=== PATIENT | male | born 1965 | race Caucasian/White ===

== ENCOUNTER 2019-11-11 07:41 | Observation (INO) ==
[2019-11-11] MEDS ORDERED: MoRPHine SULFATE 4 MG/ML 1 ML CARP\\VIAL IV STA (07:52)
[2019-11-11] MEDS ORDERED: ONDANSETRON INJ 2 MG/ML 2 ML VIAL IV STA (07:52)
[2019-11-11 08:00] LABS: Basophils # (auto) 0.03 K/uL (0-0.2); Basophils % (auto) 0.4 %; Eosinophils # (auto) 0.25 K/uL (0-0.5); Eosinophils % (auto) 3.1 %; Hematocrit (blood only) 46.1 % (42-52); Hemoglobin 16.2 g/dL (14.0-18.0); Immature Granulocytes # (auto) 0.02 K/uL (0.00-0.02); Immature Granulocytes % (auto) 0.3 %; Lymphocytes # (auto) 1.53 K/uL (1.2-3.4); Lymphocytes % (auto) 19.2 %; Mean Corpuscular Hemoglobin 32.3 pg (25-34); Mean Corpuscular Hgb Conc 35.1 g/dL (32-36); Mean Platelet Volume 10.6 fL (7.4-10.4); Monocytes # (auto) 0.41 K/uL (0.11-0.59); Monocytes % (auto) 5.1 %; Neutrophils # (auto) 5.73 K/uL (1.4-6.5); Neutrophils % (auto) 71.9 %; Platelet Count 238 K/uL (130-400); RDW Coefficient of Variation 12.9 % (11.5-14.5); RDW Standard Deviation 42.9 fL (36.4-46.3); Red Blood Count 5.01 M/uL (4.7-6.1); White Blood Count 7.97 K/uL (4.8-10.8)
--- NOTE | 2019-11-11 08:00 | Emergency Department Note ---
History of Present Illness General Chief complaint: Chest Pain Time Seen by Provider: 11/11/19 07:42 History of Present Illness Maximum Pain Intensity: 3 This is a 54-year-old male with a past medical history significant for that of type 2 diabetes and hypercholesterolemia that presents to the emergency department via ambulance with complaints of "chest pain". Current pain is a 3/10 and he points to the substernal/left anterior chest as a location of pain that he feels as though he was punched in the chest. He denies any trauma or injury. No fevers or chills. No cough. He does smoke cigarettes. He notes that initially the pain developed yesterday around 11 AM while he was at work and this was somewhat exertional in nature. This then subsided after about half an hour but did linger as a soreness throughout the day. He went to bed with the pain and woke up today around 4:30 AM and the pain seemed to have worsened. It was associated with pain in the left arm, dizziness/lightheadedness, diaphoresis with persistence of the discomfort. He then went to work and then an ambulance was summoned and he was brought here for evaluation. Prior to the ambulance arriving he did take two 325 mg aspirin, and then in the ambulance he did have a sublingual nitroglycerin as well as a nitro spray. He notes that the discomfort was decreased to a 3/10 after the nitroglycerin. He denies any heart history personally or history of NH with mother father prior to age 66. Home Medications Home Medications Medication Instructions Recorded Confirmed Type aspirin 650 mg PO DIRECTED PRN 11/11/19 11/11/19 History dapagliflozin [Farxiga] 5 mg PO QAM 11/11/19 11/11/19 History ibuprofen 400 mg PO Q6H PRN 11/11/19 11/11/19 History metformin 1,000 mg PO BID 11/11/19 11/11/19 History pseudoephedrine HCl [Sudafed] 30 mg PO QAM 11/11/19 11/11/19 History Allergies Allergy/AdvReac Type Severity Reaction Status Date / Time No Known Allergies Allergy Unverified 11/11/19 08:19 Past Med/Surg History Medical History Type 2 diabetes mellitus Surgical History Hx of anterior cruciate ligament surgery Social History Preferred Language: Marshallese Communication Ability: Effective Piano Regulator Required: No Beliefs That Will Affect Care: None Current Living Situation: Spouse Other Information That Helps Us Care for You: No Feels Safe at Home: Yes Safety Concerns: Feels Safe At This Time Smoking Status: Current every day smoker Tobacco Type: cigarettes ; Cigarettes Per Day: 20 ; Do You Dip or Chew Tobacco: No ; Hx Alcohol Use: Yes Alcohol type: beer Hx Substance Use: No Review of Systems A total of 10 systems reviewed and were otherwise negative Physical Exam Vital Signs Vital Signs - 24 hr 11/11/19 07:46 11/11/19 07:53 11/11/19 08:25 Temperature 36.8 C Temperature Source Oral Pulse Rate 80 Pulse Rate [Finger] 71 Respiratory Rate 18 16 Respiratory Effort / Characteristics Non-Labored Respiratory Depth Normal Blood Pressure 137/108 H Blood Pressure [Left Arm] 144/101 H Blood Pressure Mean 117 Blood Pressure Mean [Left Arm] 115 Pulse Oximetry 96 96 96 Oxygen Delivery Method Room Air Room Air Room Air Sepsis Recent Fever Within 48 Hours No Sepsis New/Unexplained Change in Mental Status No Sepsis Action Taken by Nursing No Action Required 11/11/19 09:41 11/11/19 11:53 Temperature Temperature Source Pulse Rate Pulse Rate [Finger] 71 83 Respiratory Rate 16 20 Respiratory Effort / Characteristics Respiratory Depth Blood Pressure Blood Pressure [Left Arm] 136/87 132/74 Blood Pressure Mean Blood Pressure Mean [Left Arm] 103 93 Pulse Oximetry 96 96 Oxygen Delivery Method Room Air Sepsis Recent Fever Within 48 Hours Sepsis New/Unexplained Change in Mental Status Sepsis Action Taken by Nursing VITAL SIGNS - Vital signs and nursing notes were reviewed. Hypertensive, otherwise stable. GENERAL - 54-year-old male appearing his stated age who is in no acute distress. Communicates well with provider and answers questions appropriately. SKIN - Without rashes. HEAD - NC/AT. EYES - PERRL with EOMI bilaterally. Sclera anicteric. EARS - No deformities of external structures noted on gross examination bilaterally. NOSE - Midline and without cyanosis. No epistaxis or purulent drainage noted. MOUTH/OROPHARYNX - Without perioral cyanosis. NECK - Neck with FROM. Supple to palpation. No lymphadenopathy noted. No nuchal rigidity. LUNGS - Chest wall symmetric without accessory muscle use, intercostals retracti ons, or central cyanosis. Normal vesicular breath sounds CTA B/L. No wheezes, rales, or rhonchi appreciated. CARDIAC - RRR with S1/S2. No murmur, rubs, or gallops appreciated. No reproducible chest tenderness. No evidence of trauma. ABDOMEN - Abdominal contour normal without pulsations or visible masses. BS normoactive all four quadrants. No tenderness, palpable masses, hepatosplenomegaly, or ascites noted. EXTREMITIES - No clubbing or peripheral cyanosis. NEUROLOGIC - Cranial nerves II through XII grossly intact. Sensory intact to light touch throughout. PSYCH - A&O, and cooperates fully with examiner. Pt is very pleasant and interacts well with examiner. Course Administered Medications Discontinued Medications Morphine Sulfate (Morphine Sulfate) 4 mg IV NOW STA Stop: 11/11/19 07:53 Last Admin: 11/11/19 07:57 Dose: 4 mg Documented by: [id number] Ondansetron HCl (Zofran) 4 mg IV NOW STA Stop: 11/11/19 07:53 Last Admin: 11/11/19 07:57 Dose: 4 mg Documented by: [id number] Medical Decision Making Laboratory Data Result diagrams: 11/11/19 07:51 11/11/19 07:51 Lab Results 11/11/19 11/11/19 11/11/19 Range/Units 07:51 07:51 07:51 WBC 7.97 (4.8-10.8) K/uL RBC 5.01 (4.7-6.1) M/uL Hgb 16.2 (14.0-18.0) g/dL Hct 46.1 (42-52) % MCV 92.0 (80-100) fL MCH 32.3 (25-34) pg MCHC 35.1 (32-36) g/dL RDW Std Deviation 42.9 (36.4-46.3) fL RDW Coeff of Charly 12.9 (11.5-14.5) % Plt Count 238 (130-400) K/uL MPV 10.6 H (7.4-10.4) fL Immature Gran % (Auto) 0.3 % Neut % (Auto) 71.9 % Lymph % (Auto) 19.2 % Greenwood % (Auto) 5.1 % Eos % (Auto) 3.1 % Baso % (Auto) 0.4 % Immature Gran # (Auto) 0.02 (0.00-0.02) K/uL Neut # (Auto) 5.73 (1.4-6.5) K/uL Lymph # (Auto) 1.53 (1.2-3.4) K/uL Greenwood # (Auto) 0.41 (0.11-0.59) K/uL Eos # (Auto) 0.25 (0-0.5) K/uL Baso # (Auto) 0.03 (0-0.2) K/uL PT 10.8 (9.0-12.0) Seconds INR 1.0 (0.9-1.1) APTT 27.3 (21.0-31.0) Seconds PTT Ratio 1.0 Sodium 137 (136-145) mmol/L Potassium 4.5 (3.5-5.1) mmol/L Chloride 109 H (98-107) mmol/L Carbon Dioxide 23 (21-32) mmol/L Anion Gap 5.0 (3-11) BUN 12 (7-18) mg/dl Creatinine 1.04 (0.6-1.4) mg/dl Est Cr Clr Drug Dosing 95.2 ml/min Est GFR ( Amer) 94.6 Est GFR (Non-Af Amer) 81.6 BUN/Creatinine Ratio 11.1 (10-20) Glucose 222 H (70-99) mg/dl Calcium 9.0 (8.5-10.1) mg/dl Magnesium 2.1 (1.8-2.4) mg/dl Total Bilirubin 0.5 (0.2-1) mg/dl AST 21 (15-37) U/L ALT 36 (12-78) U/L Alkaline Phosphatase 91 (45-117) U/L Troponin I < 0.015 (0-0.045) ng/ml Total Protein 7.9 (6.4-8.2) gm/dl Albumin 3.8 (3.4-5.0) gm/dl Globulin 4.1 H (2.5-4.0) gm/dl Albumin/Globulin Ratio 0.9 (0.9-2) Lipase 94 (73-393) U/L TSH 1.030 (0.300-4.500) uIu/ml Specimen Hemolysis COVID-19 PCR (Negative) SARS-CoV-2 RNA (RT-PCR) 11/11/19 11/11/19 Range/Units 10:15 10:15 WBC (4.8-10.8) K/uL RBC (4.7-6.1) M/uL Hgb (14.0-18.0) g/dL Hct (42-52) % MCV (80-100) fL MCH (25-34) pg MCHC (32-36) g/dL RDW Std Deviation (36.4-46.3) fL RDW Coeff of Charly (11.5-14.5) % Plt Count (130-400) K/uL MPV (7.4-10.4) fL Immature Gran % (Auto) % Neut % (Auto) % Lymph % (Auto) % Greenwood % (Auto) % Eos % (Auto) % Baso % (Auto) % Immature Gran # (Auto) (0.00-0.02) K/uL Neut # (Auto) (1.4-6.5) K/uL Lymph # (Auto) (1.2-3.4) K/uL Greenwood # (Auto) (0.11-0.59) K/uL Eos # (Auto) (0-0.5) K/uL Baso # (Auto) (0-0.2) K/uL PT (9.0-12.0) Seconds INR (0.9-1.1) APTT (21.0-31.0) Seconds PTT Ratio Sodium (136-145) mmol/L Potassium (3.5-5.1) mmol/L Chloride (98-107) mmol/L Carbon Dioxide (21-32) mmol/L Anion Gap (3-11) BUN (7-18) mg/dl Creatinine (0.6-1.4) mg/dl Est Cr Clr Drug Dosing ml/min Est GFR ( Amer) Est GFR (Non-Af Amer) BUN/Creatinine Ratio (10-20) Glucose (70-99) mg/dl Calcium (8.5-10.1) mg/dl Magnesium (1.8-2.4) mg/dl Total Bilirubin (0.2-1) mg/dl AST (15-37) U/L ALT (12-78) U/L Alkaline Phosphatase (45-117) U/L Troponin I (0-0.045) ng/ml Total Protein (6.4-8.2) gm/dl Albumin (3.4-5.0) gm/dl Globulin (2.5-4.0) gm/dl Albumin/Globulin Ratio (0.9-2) Lipase (73-393) U/L TSH (0.300-4.500) uIu/ml Specimen Hemolysis COVID-19 PCR NEGATIVE (Negative) SARS-CoV-2 RNA (RT-PCR) Cancelled Imaging Data Radiologist's Impression: XR chest 1V portable CLINICAL HISTORY: Chest pain. COMPARISON STUDY: No previous studies for comparison. FINDINGS: Lung volumes are normal. Lungs are clear. There is no pneumothorax or pleural effusion. Cardiac size is normal. Mediastinal contours are normal. There is no evidence for pulmonary edema. IMPRESSION: No acute cardiopulmonary findings. ACT 112: Negative or not required by law. Electronically signed by: Anibal Granados M.D. 11/11/2019 8:18 AM ECG Data Rate (beats per minute): 70 Rhythm: + sinus rhythm Additional Comments: Qtc 429 MDM Narrative Patient was seen and evaluated as above in room C9. Review was performed of nursing notes and vital signs. After obtaining a thorough history and physical examination the above work up was performed. The patient presents to us today with complaints of chest pain. He presents via ambulance. 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 It was atraumatic. He believes he was exerting himself at the time of the onset. The pain then subsided after about half an hour and then lingered somewhat throughout the day into this morning when he awoke. He states that he then became diaphoretic, had left arm discomfort and felt lightheaded therefore ambulance was summoned and brought here for evaluation. He does not have any personal history of NH or heart ailments that he is aware of. He is hypertensive on arrival and does have a history of type 2 diabetes and he believes also hypercholesterolemia. He does smoke cigarettes. He did take 2 325 mg aspirin prior to arrival and did have 2 rounds of nitroglycerin in the ambulance which dropped his pain quite significantly to a 3/10. Given that he was still having pain on arrival I did elect to provide him morphine here. I did review his twelve-lead EKG and there are no signs of STEMI on this. Heart score 4. Chest x-ray negative. Labs reveal no leukocytosis or anemia. No emergent metabolic disturbance. Glucose 222. Troponin negative. The patient does note he was around 7 people who tested positive recently for coronavirus. Decision to obtain cover testing was made. COVID testing negative. While in the department, I personally reevaluated the patient several times and each time the patient was found to be resting comfortably. Patient was educated upon findings and I did speak with his after obtaining consent. He will be admitted for further evaluation and management given his risk factors and presentation. Patient was in agree ment. Case was discussed with the attending physician. EKG was reviewed by myself and found to be [Normal Sinus Rhythm] at a rate of 70 beats per minute and per my interpretation reveals QTc 429, no evidence of [facility] [place], no ectopy and no previous for comparison. An order was placed for continuous cardiac monitoring. The monitor shows a rate of 80bpm with Normal sinus rhythm. I attest that I have personally reviewed the patient medication list. GCS: 15 In the evaluation and treatment of this patient, the following differential diagnoses were considered: NH, ASC, Dysrhythmia, Angina, Mediastinitis, GERD, Esophagitis, PE, Pneumonia, Bronchitis, Costochondritis, Rib Fracture, Zoster. Impression & Plan Chest pain Discharge Plan Visit Data Chief Complaint: Chest Pain ED Provider: Tyler Frederick ED Midlevel Provider: Matthew Frey Discharge Problem: Chest pain Discharge Instructions Interventions: ED Discharge Assessment Last Done: 11/11/19 12:49 Forms Stand Alone Forms: My [facility] [employer] Prescriptions Prescriptions: No Action aspirin 325 mg Tablet 650 mg PO DIRECTED PRN (Reason: Chest Pain) RF: 0 metformin 1,000 mg Tablet 1,000 mg PO BID RF: 0 ibuprofen 200 mg Tablet 400 mg PO Q6H PRN (Reason: Pain) RF: 0 pseudoephedrine HCl [Sudafed] 30 mg Tablet 30 mg PO QAM RF: 0 Farxiga 5 mg tablet 5 mg PO QAM RF: 0 Referrals Referrals: PCP,NO [Primary Care Provider] -
[2019-11-11 08:13] LABS: Partial Thromboplastin Time 27.3 Seconds (21.0-31.0); Prothrombin Time 10.8 Seconds (9.0-12.0)
--- NOTE | 2019-11-11 08:20 | XRay Report ---
XR chest 1V portable CLINICAL HISTORY: Chest pain. COMPARISON STUDY: No previous studies for comparison. FINDINGS: Lung volumes are normal. Lungs are clear. There is no pneumothorax or pleural effusion. Car diac size is normal. Mediastinal contours are normal. There is no evidence for pulmonary edema. IMPRESSION: No acute cardiopulmonary findings. ACT 112: Negative or not required by law. Electronically signed by: Anibal Granados M.D. 11/11/2019 8:18 AM
[2019-11-11 08:43] LABS: Alanine Aminotransferase 36 U/L (12-78); Albumin Globulin Ratio 0.9 (0.9-2); Albumin Level 3.8 gm/dl (3.4-5.0); Alkaline Phosphatase 91 U/L (45-117); Aspartate Aminotransferase 21 U/L (15-37); BUN Creatinine Ratio 11.1 (10-20); Bilirubin,Total 0.5 mg/dl (0.2-1); Blood Urea Nitrogen 12 mg/dl (7-18); Carbon Dioxide 23 mmol/L (21-32); Chloride 109 mmol/L (98-107); Creatinine Clr Calc Pharmacy 95.2 ml/min; Est GFR (African American) 94.6; Est GFR (Non-African American) 81.6; Globulin 4.1 gm/dl (2.5-4.0); Glucose 222 mg/dl (70-99); Lipase 94 U/L (73-393); Magnesium 2.1 mg/dl (1.8-2.4); Potassium 4.5 mmol/L (3.5-5.1); Sodium 137 mmol/L (136-145); Total Protein 7.9 gm/dl (6.4-8.2); Troponin I < 0.015 ng/ml (0-0.045)
[2019-11-11] MEDS ORDERED: NITROGLYCERIN SL 0.4 MG/TAB TAB SL PRN (13:10)
[2019-11-11] MEDS ORDERED: ACETAMINOPHEN 325 MG TAB PO PRN (13:10)
[2019-11-11] MEDS ORDERED: ONDANSETRON INJ 2 MG/ML 2 ML VIAL IV PRN (13:10)
[2019-11-11] MEDS ORDERED: MoRPHine SULFATE 2 MG/ML CARP IV PRN (13:10)
[2019-11-11] MEDS ORDERED: POLYETHYLENE (MIRALAX) 17 GM PACK PO PRN (13:10)
[2019-11-11] MEDS ORDERED: INSULIN ASPART 100 UNITS/ML 3 ML PEN SC SCH (13:10)
[2019-11-11] MEDS ORDERED: DEXTROSE 50% 50 ML SYRINGE IV PRN (13:30)
[2019-11-11] MEDS ORDERED: CARBOHYDRATES FOR HYPOGLYCEMIA PO PRN (13:30)
[2019-11-11] MEDS ORDERED: GLUCOSE 10 TABS/TUBE PO PRN (13:30)
[2019-11-11] MEDS ORDERED: GLUCAGON FOR INJ 1 MG VIAL IM PRN (13:30)
[2019-11-11] MEDS ORDERED: GLUCOSE 40% GEL 15 GM TUBE PO PRN (13:30)
[2019-11-11 14:13] LABS: Estimated Average Glucose 214 mg/dl; Hemoglobin A1C 9.1 % (4.5-5.6)
[2019-11-11 14:16] LABS: Chol HDL Ratio 6; Cholesterol 230 mg/dl (0-200); HDL Cholesterol 42 mg/dl; LDL Cholesterol Calculated 155 mg/dl; Triglycerides 167 mg/dl (0-150); Troponin I < 0.015 ng/ml (0-0.045); VLDL Cholesterol 33 mg/dl
--- NOTE | 2019-11-11 14:27 | History & Physical Report ---
Date of Service November 11, 2019 Assessment & Plan (1) Chest pain: Chest pain: Concern for ACS vs. Unstable angina vs. Costochondritis Risk factors: smoker, DM2, HLD Troponin neg x [address] or T wave changes Qtc 429 CXR negative TSH 1 Electrolytes wnl Stress test and echo ordered Given 10-year risk of heart disease or stroke risk of 25% would benefit from high intensity statin, atorvastatin 40mg daily and aspirin 81mg daily Trend troponin, monitor on telemetry HLD Pt reports being on medications in the past, not sure why stopped, does not remember having myalgias Lipid profile: TC 230, trig 167, LDL 155, HDL 42 Will discuss starting pt on atorvastatin 40mg daily DM2 - poorly controlled HgbA1c 9.1 Continue home medications: dapagliflozin and metformin Recommend close follow up with PCP for improved management HTN Hypertensive to 140s/100s improved to 137/84 s/p nitro Given hx of diabetes would benefit from Lisinopril Discuss starting Lisinopril 10mg daily Dispo: telemetry DVT: low risk Code: Full Monitor on telemetry; Trend troponin (2) HLD (hyperlipidemia): Admission and Anticipated Discharge Date Admission Date: November 11, 2019 History of Present Illness Chief Complaint: Chest Pain Primary Care Provider: NO PCP 54yoM with hx of DM2 and HLD presented with L substernal chest pain. Reports yesterday around 11am had a sharp episode of L sided chest pain that lasted for about 20 minutes and was sharp in nature without radiation or any other symptoms such as diaphoresis, sob, dizziness, nausea or vomiting. Chest pain occured w hile he was walking at work. This morning chest pain recurred while he was at work and walking. Pain is described as "soreness like" associated with L shoulder/arm pain and diaphoresis. He reports not feeling good at the time. Pain is now minimal. He reports soreness on the left side of his chest when he pushes on it. Of note: pt reports L shoulder sharp pain a few days before chest pain episode and thought he might have pulled something at work. 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 He has been around 7 covid positive co-workers but has no new symptoms. No prior hx of chest pain. Sleeps with 2 pillows at night due to acid reflux. Does not wake up short of breath. No LE edema noted. Reports some sob and needing to stop after climbing 4 flights of steps. Does a lot of steps at work (10 floor facility). Pt received 2 nitros and 2 aspirins prior to ED arrival. In the ED, he received morphine 4mg IV and zofran 4mg IV. His BP was nooted to be elevated to 144/101 but improved to 137/84 without anti-hypertensives. 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 Fhx: mother had spina bifida, alive and well otherwise; father is alive and healthy; 2 siblings (sisters) are also healthy Allergies Allergy/AdvReac Type Severity Reaction Status Date / Time No Known Allergies Allergy Unverified 11/11/19 08:19 Home Medications Home Medications Medication Instructions Recorded Confirmed Type Farxiga 5 mg PO QAM 11/11/19 11/11/19 History aspirin 81 mg PO QAM #30 tab 11/11/19 Rx atorvastatin 40 mg PO DAILY #30 tab 11/11/19 Rx ibuprofen 400 mg PO Q6H PRN 11/11/19 11/11/19 History metformin 1,000 mg PO BID 11/11/19 11/11/19 History pseudoephedrine HCl [Sudafed] 30 mg PO QAM 11/11/19 11/11/19 History Past Med/Surg History Medical History Type 2 diabetes mellitus Surgical History Hx of anterior cruciate ligament surgery Social History Preferred Language: Bermudian Communication Ability: Effective Flame Cutter Required: No Beliefs That Will Affect Care: None Current Living Situation: Spouse Other Information That Helps Us Care for You: No Feels Safe at Home: Yes Safety Concerns: Feels Safe At This Time Smoking Status: Current every day smoker Tobacco Type: cigarettes ; Cigarettes Per Day: 20 ; Do You Dip or Chew Tobacco: No ; Hx Alcohol Use: Yes Alcohol type: beer Hx Substance Use: No Review of Systems Review of Systems: As per HPI Physical Exam Physical Exam: General: In NAD Neuro: A&O x 4 Pulm: CTAB equal breath sounds bilaterally CV: RRR, no m/r/g, L sided chest wall tenderness (soreness) Abdomen:+BS, no TTP in all quadrants, non-distended LE: no LE edema, no calf TTP Results & Data Results & Data ([facility]) Vital Signs (Past 12 Hours) Vital Signs Temp Pulse Pulse Resp BP BP Pulse Ox 11/11/19 13:10 36.5 C 61 20 137/84 94 11/11/19 11:53 83 20 132/74 96 11/11/19 09:41 71 16 136/87 96 11/11/19 08:25 71 16 144/101 H 96 11/11/19 07:53 96 11/11/19 07:46 36.8 C 80 18 137/108 H 96 Code Status & VTE Plan Code Status Full VTE Prophylaxis Plan VTE Prophylaxis will be ordered: Yes Supervising Physician Co-Signing Physician Notes I personally examined the patient and verified all santos points of history and exam, discussed case, and agree with decision making with Dr Alvarez see docuemntation on dc summary same date. Resident Activity Tracking Resident Involvement: Resident Care Provided Care Provided: Adult Hospital Medicine
--- NOTE | 2019-11-11 17:19 | Discharge Summary ---
Date of Service November 11, 2019 Admission HPI Per Admitting Provider 54yoM with hx of DM2 and HLD presented with L substernal chest pain. Reports yesterday around 11am had a sharp episode of L sided chest pain that lasted for about 20 minutes and was sharp in nature without radiation or any other symptoms such as diaphoresis, sob, dizziness, nausea or vomiting. Chest pain occured while he was walking at work. This morning chest pain recurred while he was at work and walking. Pain is described as "soreness like" associated with L shoulder/arm pain and diaphoresis. He reports not feeling good at the time. Pain is now minimal. He reports soreness on the left side of his chest when he pushes on it. Of note: pt reports L shoulder sharp pain a few days before chest pain episode and thought he might have pulled something at work. 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 He has been around 7 covid positive co-workers but has no new symptoms. No prior hx of chest pain. Sleeps with 2 pillows at night due to acid reflux. Does not wake up short of breath. No LE edema noted. Reports some sob and needing to stop after climbing 4 flights of steps. Does a lot of steps at work (10 floor facility). Pt received 2 nitros and 2 aspirins prior to ED arrival. In the ED, he received morphine 4mg IV and zofran 4mg IV. His BP was nooted to be elevated to 144/101 but improved to 137/84 without anti-hypertensives. 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 Unstable angina vs. Costochondritis Risk factors: smoker, DM2, HLD Troponin neg x [address] or T wave changes Qtc 429 CXR negative TSH 1 Electrolytes wnl Stress echo reassuring Given 10-year risk of heart disease or stroke risk of 25% would benefit from high intensity statin, atorvastatin 40mg daily and aspirin 81mg daily HLD Pt reports being on medications in the past, not sure why stopped, does not remember having myalgias Lipid profile: TC 230, trig 167, LDL 155, HDL 42 Starte on atorvastatin 40mg daily DM2 - poorly controlled HgbA1c 9.1 Continue home medications: dapagliflozin and metformin Recommend close follow up with PCP for improved management HTN Hypertensive to 140s/100s improved to 137/84 s/p nitro Given hx of diabetes would benefit from Lisinopril However, pt would like to monitor BP at this time and follow up with PCP if elevated for medication initiation Monitor on telemetry; Trend troponin (2) HLD (hyperlipidemia): Supervising Physician Co-Signing Physician Notes I personally examined the patient and verified all santos points of history and exam, discussed case, and agree with decision making with Dr Alvarez. chest pain - now better. troponins negative, stress echo negative for ischemia. vitals noted nad heent nc at mmm breathing unlabored no accessory muscles good effort skin no rashes no pallor or icterus chest pain - most likely MSK. cardiac w/u negative and reassuring, stable for home. significant risks outlined to pt - secondary risk reduction necessary - discussed without risk factor reduction the above negative w/u will not last for long. he expressed understanding. med management, PCP f/u, lifestyle change. stable for home otherwise as above Resident Activity Tracking Resident Involvement: Resident Care Provided Care Provided: Adult Hospital Medicine
--- NOTE | 2019-11-11 18:56 | Billing Data ---
Date of Service November 11, 2019 Coding Level of Care Code Admit/DC Same Day >8hr Level 3
--- NOTE | 2019-11-12 05:49 | Electrocardiogram Report ---
Test Reason : Blood Pressure : / mmHG Vent. Rate : 070 BPM Atrial Rate : 070 BPM P-R Int : 126 ms QRS Dur : 098 ms QT Int : 398 ms P-R-T Axes : 018 035 041 degrees QTc Int : 429 ms Normal sinus rhythm Normal ECG No previous ECGs available Confirmed by Darwin Mishra ([id number]) on 11/12/2019 5:48:42 AM Referred By: Confirmed By:Darwin Mishra
[2019-11-12] MEDS ORDERED: ASPIRIN 81 MG ECTAB PO SCH (09:00)
--- NOTE | 2019-11-12 10:46 | XCELERA ---
[id number]
== END 2019-11-11 17:39 | disposition home or self-care (01) ==
LOC: 2S 07:41 → ED 07:41 → 2S 12:49